=== PATIENT | male | born 1970 | race Caucasian/White ===

== ENCOUNTER → 2016-12-18 | Outpatient (CLI) | payer OTHER | LOC: KOH-I 12-17 10:00 | DX: R10.13 Epigastric pain (principal); K21.9 Gastro-esophageal reflux disease without esophagitis; E55.9 Vitamin D deficiency, unspecified; M53.80 Other specified dorsopathies, site unspecified; E78.5 Hyperlipidemia, unspecified; J30.9 Allergic rhinitis, unspecified; M79.7 Fibromyalgia; R10.9 Unspecified abdominal pain; F17.210 Nicotine dependence, cigarettes, uncomplicated; K80.21 Calculus of gallbladder without cholecystitis with obstruction; K86.89 Other specified diseases of pancreas | CPT/HCPCS: 76705 ==